=== PATIENT | male | born 1960 | race Two or more races ===

== ENCOUNTER → 2025-07-12 | Outpatient (CLI) | payer MEDICARE, MEDICAID, SELFPAY ==
--- NOTE | 2025-07-12 11:30 | XR_ITS ---
Examination: CT lung low dose screening, without contrast. 2-D sagittal reconstructions. 2-D coronal reconstructions. 3-D reconstructions. Date and time of exam: July 12, 2025, 11:20 a.m., comparison December 29, 2023 INDICATIONS: Smoking history 58 years, shortness of breath 1 year, history pulmonary nodules, 4 mm lingular segment 15 mm right middle lobe 4 mm left lower lobe on CT chest December 29, 2023 CTDI: vol (mGy): 10.07 DLP: (mGycm): 421 Technique: Multiple 1.25 mm axial sections of the lung low dose screening without intravenous contrast have been obtained. 2-D sagittal and coronal reconstructions have been obtained. 3-D reconstructions have been obtained. Low dose protocols were performed. One or more of the following dose reduction techniques were used; automated exposure control, adjustment of the mA and/or KV according to patient size, use of iterative reconstruction technique. Findings: No thoracic aortic aneurysmal dilatation Pulmonary artery segments are not enlarged Significant calcification left anterior descending left circumflex right coronary arteries No mediastinal lymphadenopathy Stable pulmonary nodules compared with December 29, 2023 No new pulmonary nodules No visualized liver or splenic lesion Gallbladder partly visualized no stones No pancreatic edema Normal adrenal glands Kidneys partially visualized no hydronephrosis Moderate thoracic spondylosis IMPRESSION: Stable pulmonary nodules compared with CT chest December 29, 2023 No new pulmonary nodules
== END | disposition home or self-care (01) ==
DX: Z12.2 Encounter for screening for malignant neoplasm of respiratory organs (principal); R91.8 Other nonspecific abnormal finding of lung field
CPT/HCPCS: 71271